=== PATIENT | male | born 1960 ===

== ENCOUNTER 2020-11-27 06:28 | Day surgery (SDC) | payer OTHER ==
[2020-11-27] MEDS ORDERED: PERCOCET 5-3251 EACH PO (20:27)
== END 2020-11-28 08:00 | disposition home or self-care (01) ==
LOC: CIR.AMB 06:28
PROVIDERS: ATTEND Surgery
DX: N52.03 Combined arterial insufficiency and corporo-venous occlusive erectile dysfunction (principal); N48.6 Induration penis plastica; Z20.822 Contact with and (suspected) exposure to COVID-19
CPT/HCPCS: 54405; 54112; C1813